=== PATIENT | female | born 2000 | race Caucasian/White ===

== ENCOUNTER 2022-03-30 11:02 | Emergency (ER) | payer OTHER, SELFPAY ==
--- NOTE | 2022-03-30 11:13 | ED.EXTPRO ---
HPI - Extremity Problem General Chief complaint: Extremity Problem,Nontraumatic Stated complaint: Left Hip and Leg Pain Time Seen by Provider: 03/30/22 11:20 Source: patient Mode of arrival: ambulatory Limitations: no limitations History of Present Illness HPI Narrative: Ewelina Alvarado is a 22 year old female who presents to the clinic today for left hip and thigh pain for the last 2 weeks. The pain started an hour after a 3 mile run. She denies falling, trauma to the area, and did not hear a pop. The pain is a 5/10, described as an aching pain, and is worse with activity. The pain radiates from anterior left hip to medial knee, and she experiences tingling in her left big toe. She has been to the emergency room twice since the pain started and was told she has a uterine fibroid diagnosed via pelvic US. In the ED, hip XRAY, abdomen and pelvic CT, UA, test were unremarkable. She has been taking ibuprofen for pain which has helped a little . She denies urinary frequency, urgency, pain, bowel and bladder incontinence, saddle anesthesia, abnormal vaginal discharge or odor, diarrhea, constipation, nausea, vomiting, fever, chills. Related Data Home Medications Medication Instructions Recorded Confirmed Control 1 tab-cap PO DAILY 03/30/22 03/30/22 azelastine 137 mcg (0.1 %) nasal 2 spray intranasal DAILY 03/30/22 03/30/22 spray aerosol loratadine 10 mg tablet 10 mg PO DAILY 03/30/22 03/30/22 Allergies Allergy/AdvReac Type Severity Reaction Status Date / Time cyclobenzaprine AdvReac Intermediate Palpitation Verified 03/30/22 11:22 [From Flexeril] s Review of Systems Review of Systems: Pertinent positives per HPI. Patient denies any fever, chills, rash, headache, visual changes, dizziness, cough, runny nose, sore throat, shortness of breath, chest pain, palpitations, nausea, vomiting, diarrhea, constipation, abdominal pain, or any urinary issues. PMFSH Comments At the time of my signature, I reviewed and agree with the nursing past medical, surgical, social, and family history. There is no relevant family history pertinent to the patient complaint. Exam Narrative: General: Well-developed, well nourished, in no apparent distress Head: Normocephalic, atraumatic. Cardio: Regular rate and rhythm, s1 and s2 normal, no murmur appreciated. Resp: Clear to auscultation bilaterally, no rhonchi, rales, wheezing or rubs. Musculoskeletal: No deformity, tender to palpation over left anterior hip and thigh, grossly normal range of motion, muscle strength strong on right and weak on left with knee extension and hip flexion, pain with internal and external hip rotation, peripheral pulse strong, no edema, no cyanosis, gait is cautious/rigid without limp Course Course Emergency Course: Portions of this record may have been created with voice recognition software. Level of Care: Express Care Visit Vital Signs Vital signs: Vital signs reviewed MDM - Extremity (Nontraumatic) MDM Narrative Medical decision making narrative: At the time of visit patient was resting comfortably on the exam table. I suspect the patient has a muscle strain with some paresthesia. We will send prescription in for some Robaxin and prednisone. Supportive measures were discussed with the patient she voiced understanding and agrees with the treatment plan and voiced understanding of the discharge instructions. Differential Diagnosis Differential diagnosis: Likely other (Muscle strain, sciatica, osteoarthritis, kidney stone, ovarian cyst, STI, UTI) Discharge Plan Discharge Clinical Impression: Muscle strain, Radicular leg pain Patient Disposition: Home, Self-Care Condition: Stable Instructions: Antibiotic Form, Muscle Strain (DC), Paresthesia (ED) Additional Instructions: Rest, avoid strenuous physical activity for 1 week Take prednisone 40 mg daily for 5 days and Robaxin every 6 hours as needed for muscle spasms x 1 week [place]
[2022-03-30 11:16] VITALS: BP 131/83; PULSE 60; RESP 16; TEMP 36.3; O2SAT 100
== END 2022-03-30 11:52 | disposition home or self-care (01) ==
PROVIDERS: Emergency Provider Nurse Practitioner Family
DX: S76.012A Strain of muscle, fascia and tendon of left hip, initial encounter (principal); X50.3XXA Overexertion from repetitive movements, initial encounter; Y93.02 Activity, running; M54.10 Radiculopathy, site unspecified
CPT/HCPCS: 99203; G0463